=== PATIENT | male | born 1985 | race American Indian/Alaskan Native ===

== ENCOUNTER 2016-12-10 09:53 | Emergency (ER) | payer BC, OTHER ==
[2016-12-10] MEDS ORDERED: AUGMENTIN 875 MG PO ONE (13:31)
[2016-12-10] MEDS ORDERED: MOTRIN PO ONE (13:32)
--- NOTE | 2016-12-10 13:57 | Emergency Department Report ---
ED ENT HPI - General Chief complaint: Dental/Oral Stated complaint: RIGHT SWOLLEN JAW Time Seen by Provider: 12/10/16 12:21 Source: patient Mode of arrival: Ambulatory Limitations: No Limitations - History of Present Illness Initial comments: The patient is a 31-year-old male who presents to ED complaining of 7/10 pain in the right upper side of his mouth x 5 days . Patient states that the pain started 5 days ago and has increased in severity over the last 2-3 days. The pain is exacerbated by eating and opening of the mouth. Patient states that it radiates towards ear. Patient describes a as a throbbing, pressure-like sensation. Patient states otherwise well and has no other complaints. Patient has had no fevers and no chills. No chest pain, no shortness of breath. No abdominal pain. No shortness of breath or recent trauma to the face. MD complaint: tooth pain Severity: moderate Severity scale (0 -10): 7 Quality: stabbing, aching, constant - Related Data Home Medications Medication Instructions Recorded Confirmed Last Taken Albuterol Sulfate [Ventolin HFA] 2 puff IH Q4H PRN 03/19/13 03/19/13 03/18/13 16 :00 Budesoni/Formotero 160-4.5(Nf) 1 puff IH QDAY 03/19/13 03/19/13 03/17/13 09:00 [Symbicort 160-4.5] Previous Rx's Medication Instructions Recorded Last Taken Type Budesoni/Formotero 160-4.5(Nf) 2 puff IH BID #1 inha 03/19/13 Unknown Rx [Symbicort 160-4.5] Ipratropium/Albuter (Nf) 2 puff IH QID #1 inha 03/19/13 Unknown Rx [Combivent Inhaler] predniSONE [Deltasone] 50 mg PO QDAY #5 tab 03/19/13 Unknown Rx Azithromycin [Zithromax] 500 mg PO QDAY #5 tablet 04/21/13 Unknown Rx Hycodan 5 ml PO Q6H #120 ml 04/21/13 Unknown Rx Ipratropium/Albuter (Nf) 2 puff IH QID #1 inha 04/21/13 Unknown Rx [Combivent Inhaler] Amoxicillin/K Clav Tab [Augmentin 1 each PO BID #20 tablet 12/10/16 Unknown Rx 875MG TAB] Ibuprofen [Motrin 800 MG tab] 800 mg PO TID #30 tablet 12/10/16 Unknown Rx Allergies Allergy/AdvReac Type Severity Reaction Status Date / Time No Known Allergies Allergy Verified 12/10/16 10:36 ED Dental HPI - General Chief complaint: Dental/Oral Stated complaint: RIGHT SWOLLEN JAW Time Seen by Provider: 12/10/16 12:21 Source: patient Mode of arrival: Ambulatory Limitations: No Limitations - Related Data Home Medications Medication Instructions Recorded Confirmed Last Taken Albuterol Sulfate [Ventolin HFA] 2 puff IH Q4H PRN 03/19/13 03/19/13 03/18/13 16 :00 Budesoni/Formotero 160-4.5(Nf) 1 puff IH QDAY 03/19/13 03/19/13 03/17/13 09:00 [Symbicort 160-4.5] Previous Rx's Medication Instructions Recorded Last Taken Type Budesoni/Formotero 160-4.5(Nf) 2 puff IH BID #1 inha 03/19/13 Unknown Rx [Symbicort 160-4.5] Ipratropium/Albuter (Nf) 2 puff IH QID #1 inha 03/19/13 Unknown Rx [Combivent Inhaler] predniSONE [Deltasone] 50 mg PO QDAY #5 tab 03/19/13 Unknown Rx Azithromycin [Zithromax] 500 mg PO QDAY #5 tablet 04/21/13 Unknown Rx Hycodan 5 ml PO Q6H #120 ml 04/21/13 Unknown Rx Ipratropium/Albuter (Nf) 2 puff IH QID #1 inha 04/21/13 Unknown Rx [Combivent Inhaler] Amoxicillin/K Clav Tab [Augmentin 1 each PO BID #20 tablet 12/10/16 Unknown Rx 875MG TAB] Ibuprofen [Motrin 800 MG tab] 800 mg PO TID #30 tablet 12/10/16 Unknown Rx Allergies Allergy/AdvReac Type Severity Reaction Status Date / Time No Known Allergies Allergy Verified 12/10/16 10:36 ED Review of Systems ROS: Stated complaint: RIGHT SWOLLEN JAW Other details as noted in HPI Constitutional: denies: chills, fever Eyes: denies: eye pain, eye discharge, vision change ENT: dental pain. denies: ear pain, throat pain, hearing loss, congestion Respiratory: denies: cough, shortness of breath, wheezing Cardiovascular: denies: chest pain, palpitations Endocrine: no symptoms reported Gastrointestinal: denies: abdominal pain, nausea, diarrhea Genitourinary: denies: urgency, dysuria Musculoskeletal: denies: back pain, joint swelling, arthralgia Skin: denies: rash, lesions Neurological: denies: headache, weakness, paresthesias Psychiatric: denies: anxiety, depression Hematological/Lymphatic: denies: easy bleeding, easy bruising ED Past Medical Hx - Past Medical History Hx Asthma: Yes Additional medical history: Bronchitis - Surgical History Past Surgical History?: No - Social History Smoking Status: Former Smoker Substance Use Type: None - Medications Home Medications: Home Medications Medication Instructions Recorded Confirmed Last Taken Type Albuterol Sulfate [Ventolin HFA] 2 puff IH Q4H PRN 03/19/13 03/19/13 03/18/13 16 :00 History Budesoni/Formotero 160-4.5(Nf) 1 puff IH QDAY 03/19/13 03/19/13 03/17/13 09:00 History [Symbicort 160-4.5] Budesoni/Formotero 160-4.5(Nf) 2 puff IH BID #1 inha 03/19/13 Unknown Rx [Symbicort 160-4.5] Ipratropium/Albuter (Nf) 2 puff IH QID #1 inha 03/19/13 Unknown Rx [Combivent Inhaler] predniSONE [Deltasone] 50 mg PO QDAY #5 tab 03/19/13 Unknown Rx Azithromycin [Zithromax] 500 mg PO QDAY #5 tablet 04/21/13 Unknown Rx Hycodan 5 ml PO Q6H #120 ml 04/21/13 Unknown Rx Ipratropium/Albuter (Nf) 2 puff IH QID #1 inha 04/21/13 Unknown Rx [Combivent Inhaler] Amoxicillin/K Clav Tab [Augmentin 1 each PO BID #20 tablet 12/10/16 Unknown Rx 875MG TAB] Ibuprofen [Motrin 800 MG tab] 800 mg PO TID #30 tablet 12/10/16 Unknown Rx ED Physical Exam - General Limitations: No Limitations General appearance: alert, in no apparent distress - Head Head exam: Present: atraumatic, normocephalic - Eye Eye exam: Present: normal appearance, PERRL, EOMI - ENT ENT exam: Present: mucous membranes moist, other (gingival enlargement, tenderness to palpation ) - Expanded ENT Exam Expanded Mouth exam: Present: normal external inspection. Absent: drooling, trismus, muffled voice Teeth exam: Present: dental caries, fractured tooth #, gingival enlargement - Neck Neck exam: Present: normal inspection - Respiratory Respiratory exam: Present: normal lung sounds bilaterally. Absent: respiratory distress - Cardiovascular Cardiovascular Exam: Present: regular rate, normal rhythm. Absent: systolic murmur, diastolic murmur, rubs, gallop - GI/Abdominal GI/Abdominal exam: Present: soft, normal bowel sounds - Rectal Rectal exam: Present: deferred - Extremities Exam Extremities exam: Present: normal inspection - Back Exam Back exam: Present: normal inspection - Neurological Exam Neurological exam: Present: alert, oriented X3 - Psychiatric Psychiatric exam: Present: normal affect, normal mood - Skin Skin exam: Present: warm, dry, intact, normal color. Absent: rash ED Course Vital Signs 12/10/16 12/10/16 10:37 14:08 Temperature 98.4 F Pulse Rate 73 72 Respiratory 17 16 Rate Blood Pressure 139/74 Blood Pressure 157/83 [Right] O2 Sat by Pulse 100 100 Oximetry ED Medical Decision Making - Medical Decision Making 28-year-old female who presents with right Facial pain secondary to odontogenic caries ED course: Patient received 75 mg of Augmentin Odontogenic infection versus ear infection. Based upon history and physical examination, pain is a result of a tooth infection and that the pain Pt feels on the right side of his face and towards the ear is referred pain from this infectious process. Pt has no evidence of acute impending airway compromise. At this point, patient will be discharged home on some antibiotics and pain trial, she will do well with an outpatient course of antibiotics. Follow up with the Dental [facility] as referred Vital signs are normal patient is in no acute distress. Pt had an effect uneventful ED stay Critical care attestation.: If time is entered above; I have spent that time in minutes in the direct care of this critically ill patient, excluding procedure time. ED Disposition Clinical Impression: Dental abscess Disposition: DC-01 TO HOME OR SELFCARE Is pt being admited?: No Does the pt Need Aspirin: No Condition: Stable Instructions: Dental Abscess (ED), Toothache (ED) Prescriptions: Amoxicillin/K Clav Tab [Augmentin 875MG TAB] 1 each PO BID #20 tablet Ibuprofen [Motrin 800 MG tab] 800 mg PO TID #30 tablet Referrals: TERRENCE CORMIER JR, MD [Primary Care Provider] - 3-5 Days [facility] [Outside] - 3-5 Days [facility] [Outside] - 3-5 Days Forms: Accompanied Note Time of Disposition: 14:00
[2016-12-10 14:09] VITALS: BP 157/83
== END 2016-12-10 14:08 | disposition home or self-care (01) ==
LOC: ED 09:53
DX: K04.7 Periapical abscess without sinus (principal); J45.909 Unspecified asthma, uncomplicated; Z87.891 Personal history of nicotine dependence
CPT/HCPCS: 99282